=== PATIENT | male | born 1965 | race African-American/Black ===

== ENCOUNTER 2018-04-02 00:35 | Emergency (ER) | payer MEDICAID ==
[2018-04-02 01:33] LABS: AGAP ISTAT 16 mmol/L (6-14); BUN ISTAT 17 mg/dL (8-26); CHLORIDE ISTAT 106 mmol/L (98-110); GLUCOSE ISTAT 112 mg/dL (70-99); HEMATOCRIT ISTAT 44 % (37-52); ION CA ISTAT 1.18 mmol/L (1.13-1.32); POTASSIUM ISTAT 3.7 mmol/L (3.5-5.0); SODIUM ISTAT 142 mmol/L (135-145); TOT CO2 ISTAT 24 mmol/L (23-32)
[2018-04-02 01:44] LABS: BILIRUBIN,URINE NEGATIVE (NEG); CLARITY,URINE CLEAR; COLOR,URINE YELLOW; GLUCOSE,URINE NEGATIVE (NEG); NITRITE,URINE NEGATIVE (NEG); PROTEIN,URINE NEGATIVE (NEG-TRACE)
[2018-04-02 01:49] LABS: BACTERIA,URINE 0 /HPF (0-FEW); RBC,URINE 0 /HPF (0-2); SQUAMOUS EPITHELIAL CELL,UR FEW /LPF
== END 2018-04-02 03:26 | disposition home or self-care (01) ==
LOC: ER 00:35
DX: I10 Essential (primary) hypertension (principal); R42 Dizziness and giddiness; R51 Headache
CPT/HCPCS: 36415; 80047; 81001; 84484; 85014; 85018; 93005; 99285-25

== ENCOUNTER 2018-05-27 | Emergency (ER) | payer MEDICAID ==
[~2018-05-27] VITALS: Ht 177.8 cm; Wt 102.1 kg
[2018-05-27 00:13] VITALS: BP 126/79
[2018-05-27] MEDS ORDERED: ONDA4TAB10 SL (01:12)
[2018-05-27] MEDS ORDERED: DIAZ5TAB4 PO (01:12)
[2018-05-27] MEDS ORDERED: BUTA1TAB23 PO (01:12)
[2018-05-27] MEDS ORDERED: PRED20TA PO (01:12)
--- NOTE | 2018-05-27 01:12 | PHYS DOC ---
Past Medical History Past Medical History: Hypertension, Other Additional Past Medical Histor: VERTIGO Past Surgical History: No Surgical History Alcohol Use: None Drug Use: None Adult General Chief Complaint Chief Complaint: DIZZY/LIGHT HEADED HPI HPI Patient is a 53 year old male with a history of vertigo who presents to the ED due to dizziness and headache. He states that he was walking home from the grocery store when he began to feel dizzy. He notes that he feels dizzy often due to his vertigo, but his symptoms have been getting worse. He also endorses nasal congestion, eye pain, nausea, and heart palpitations. He rates his headache and eye pain as an 8/10 and describes it as a throbbing pain. He denies any chest pain, shortness of breath, abdominal pain, vomiting, diarrhea, or constipation. He further notes that he has periods of time where he starts to think about his symptoms and starts to "freak out" which causes his symptoms to worsen. Review of Systems Review of Systems Constitutional: Denies fever or chills Eyes: Notes eye pain; Denies change in visual acuity, redness HENT: Notes headache and slight nasal congestion Respiratory: Denies cough or shortness of breath Cardiovascular: Notes heart palpitations; Denies chest pain GI: Notes nausea; Denies abdominal pain, vomiting, diarrhea, or constipation : Denies dysuria or hematuria Musculoskeletal: Denies back pain or joint pain Integument: Denies rash or skin lesions Neurologic: Notes headache; Denies focal weakness or sensory changes Complete systems were reviewed and found to be within normal limits, except as documented in this note Family History Family History Noncontributory Current Medications Current Medications Current Medications Medications (Trade) Dose Ordered Sig/Zenia Start Time Stop Time Status Last Admin Dose Admin Acetaminophen/ Butalbital/ Caffeine (Fioricet) 1 tab 1X ONCE 05/27/18 01:15 05/27/18 01:16 DC 05/27/18 01:23 1 TAB Dexamethasone (Decadron) 10 mg 1X ONCE 05/27/18 01:15 05/27/18 01:16 DC 05/27/18 01:24 10 MG Diazepam (Valium) 2 mg 1X ONCE 05/27/18 01:15 05/27/18 01:16 DC 05/27/18 01:23 2 MG Ondansetron HCl (Zofran Odt) 4 mg 1X ONCE 05/27/18 01:15 05/27/18 01:16 DC 05/27/18 01:23 4 MG Allergies Allergies Allergies Coded Allergies Type Severity Reaction Last Updated Verified No Known Drug Allergies 04/02/18 No Physical Exam Physical Exam Constitutional: Well developed, well nourished, appears anxious HENT: Normocephalic, atraumatic, oropharynx moist Eyes: PERRL, EOMI, conjunctiva slightly red, no discharge Neck: Normal range of motion, no tenderness, supple Cardiovascular: Heart rate regular rhythm, no murmur Lungs & Thorax: Bilateral breath sounds clear to auscultation Abdomen: Soft, nontender Skin: Warm, dry, no erythema, no rash Back: No tenderness, no CVA tenderness Extremities: No tenderness, ROM intact, no edema Neurologic: Alert and oriented X 3, normal motor function, normal sensory function, no focal deficits noted Psychologic: Affect congruent, judgment normal, mood anxious Current Patient Data Vital Signs Vital Signs Date Time Temp Pulse Resp B/P (MAP) Pulse Ox O2 Delivery O2 Flow Rate FiO2 05/27/18 00:13 98.1 75 20 126/79 (95) 96 Room Air 98.1 EKG EKG [] Radiology/Procedures Radiology/Procedures [] Course & Med Decision Making Course & Med Decision Making Patient is a 53 year old male with a history of vertigo who presents to the ED due to dizziness and headache. He also endorses eye pain, nausea, and heart palpitations. Patient notes that he has had symptoms like these in the past due to his vertigo, but they have been getting worse. He stated that they are the worst when he begins to think about his symptoms and starts to "freak out". His description of his symptoms are consistent with those of anxiety/panic attacks. His symptoms are likely an exacerbation of his chronic vertigo in addition to anxiety. His nasal congestion is adding to his symptoms. Patient was offered the option of having a full workup completed with labs and imaging studies; however, the patient agreed that his symptoms are likely an exacerbation of his chronic vertigo and that a workup is not necessary at this time. He was given a one-time dose of dexamethasone for his congestion and inflammation. Patient stable for discharge with outpatient follow -up with PCP. He was provided prescriptions for diazepam for his dizziness/ anxiety, Zofran for his nausea, and Fioricet for his headache. Discussed findings and plan with patient who acknowledges understanding and agreement. Rosio Disclaimer Dragon Disclaimer This electronic medical record was generated, in whole or in part, using a voice recognition dictation system. Departure Departure Impression: Primary Impression: Anxiety Additional Impressions: Vertigo Headache Disposition: HOME, SELF-CARE Condition: STABLE Referrals: NO PCP (PCP) Patient Instructions: Anxiety and Panic Attacks, [id number], Headache, FAQs, Vertigo, [id number] Scripts Prednisone (PREDNISONE) 20 Mg Tablet 2 TAB PO DAILY, #8 TAB Start on Monday05/28/2018 Prov: TRISTON REESE DO 05/27/18 Butalb/Acetaminophen/Caffeine ([id number] [id number]) 1 Each Tablet 1 EACH PO Q6HRS PRN for HEADACHE, #10 TAB Prov: TRISTON REESE DO 05/27/18 Ondansetron (ZOFRAN ODT) 4 Mg Tab.rapdis 1 TAB SL Q8HRS PRN for NAUSEA, #15 TAB Prov: TRISTON REESE DO 05/27/18 Diazepam (DIAZEPAM) 5 Mg Tablet 2.5 MG PO Q8HRS PRN for DIZZINESS, #6 TAB Prov: TRISTON REESE DO 05/27/18 Problem Qualifiers Additional Impressions: Headache Headache type: unspecified Headache chronicity pattern: acute headache Intractability: not intractable Qualified Codes: R51 - Headache TRISTON REESE DO May 27, 2018 01:12
[2018-05-27] MEDS ORDERED: DEXAMETHASONE 4 MG TABLET PO ONE (01:15)
[2018-05-27] MEDS ORDERED: BUTALB/APAP/CAFEIN 50/325/40MG TABLET. PO ONE (01:15)
[2018-05-27] MEDS ORDERED: diazePAM 2 MG TABLET PO ONE (01:15)
[2018-05-27] MEDS ORDERED: ONDANSETRON ODT 4 MG TAB.RAPDIS. PO ONE (01:15)
== END 2018-05-27 01:30 | disposition home or self-care (01) ==
LOC: ER
DX: R42 Dizziness and giddiness (principal); R51 Headache; F41.9 Anxiety disorder, unspecified; I10 Essential (primary) hypertension; R09.81 Nasal congestion; R00.2 Palpitations; H57.10 Ocular pain, unspecified eye
CPT/HCPCS: 99284; J8540; Q0162